=== PATIENT | female | born 1980 | race Caucasian/White ===

== ENCOUNTER 2016-10-05 16:34 | Emergency (ER) | payer OTHER ==
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
[2016-10-05 20:15] VITALS: BP 138/88
== END 2016-10-05 19:33 | disposition home or self-care (01) ==
LOC: ER 16:34
DX: S16.1XXA Strain of muscle, fascia and tendon at neck level, initial encounter (principal); S40.022A Contusion of left upper arm, initial encounter; V49.40XA Driver injured in collision with unspecified motor vehicles in traffic accident, initial encounter; M54.9 Dorsalgia, unspecified; R51 Headache
CPT/HCPCS: 99283